=== PATIENT | female | born 1995 | race Caucasian/White ===

== ENCOUNTER 2017-04-19 19:18 | Emergency (ER) | payer OTHER ==
[~2017-04-19] VITALS: Ht 162.6 cm; Wt 7.0 kg
[2017-04-19 20:00] VITALS: BP 130/60
== END 2017-04-19 20:00 | disposition home or self-care (01) | DRG 761 ==
LOC: ED 19:18
DX: N89.8 Other specified noninflammatory disorders of vagina (principal)

== ENCOUNTER 2017-06-09 20:06 | Emergency (ER) | payer OTHER ==
[~2017-06-09] VITALS: Ht 162.6 cm; Wt 71.4 kg
[2017-06-10 00:49] VITALS: BP 114/61
== END 2017-06-10 00:45 | disposition home or self-care (01) | DRG 103 ==
LOC: ED 20:06
DX: R51 Headache (principal)

== ENCOUNTER 2018-04-29 14:30 | Emergency (ER) | payer OTHER ==
[~2018-04-29] VITALS: Ht 162.6 cm; Wt 72.0 kg
[2018-04-29] MEDS ORDERED: TORADOL PO (15:05)
[2018-04-29 15:15] VITALS: BP 118/72
== END 2018-04-29 15:15 | disposition home or self-care (01) | DRG 159 ==
LOC: ED 14:30
DX: K04.7 Periapical abscess without sinus (principal)

== ENCOUNTER 2020-01-26 11:05 | Emergency (ER) | payer OTHER ==
[~2020-01-26] VITALS: Ht 162.6 cm; Wt 75.0 kg
[~2020-01-26 11:05] MED LIST: TORADOL PO
[2020-01-26 11:44] VITALS: BP 128/67
== END 2020-01-26 11:44 | disposition home or self-care (01) ==
LOC: ED 11:05
DX: O9A.212 Injury, poisoning and certain other consequences of external causes complicating pregnancy, second trimester (principal); S00.01XA Abrasion of scalp, initial encounter; Z3A.18 18 weeks gestation of pregnancy; W22.09XA Striking against other stationary object, initial encounter